=== PATIENT | male | born 1950 | race Caucasian/White ===

== ENCOUNTER 2020-11-20 15:24 | Inpatient (IN) | payer MEDICARE, OTHER, SELFPAY ==
[2020-11-20] VITALS (7 sets, daily range): BP systolic 99–119; BP diastolic 56–97; PULSE 72–90; RESP 15–19; TEMP 36.9–37.3; O2SAT 94–100; BMI 24.3; BMI 24.2
[2020-11-20] MEDS: Morphine 4 MG/ML Syringe IV (16:04)
[2020-11-20] MEDS: Ondansetron 4 MG/2 ML Vial IV (16:05)
[2020-11-20] MEDS: 0.9% Normal Saline 1,000 ML 999 ML IV (16:05)
[2020-11-20 16:29] LABS: International Normalized Ratio 1.2; Prothrombin Time (Protime)PT. 14.4 SECONDS (11.7-14.9)
[2020-11-20 16:30] LABS: Partial Thromboplast Time 50.6 Seconds (24.1-36.2)
[2020-11-20 16:31] LABS: Absolute Lymphocyte Count 0.38 X10^3/uL (0.83-4.51); Absolute Neutrophil Count 0.1 X10^3/uL (2.0-7.7); Basophil# 0.02 X10^3/uL; Basophil% 2.7 % (0-1); Eosinophil# 0.02 X10^3/uL; Eosinophils% 2.7 % (0-5); Hemoglobin 9.3 g/dL (13.0-16.5); Lymphocyte # 0.38 X10^3/ul (0.83-4.51); Lymphocyte % 51.4 % (19-41); Mean Corp Hgb Conc 32.1 g/dL (32-36); Mean Corpuscular Hgb 32.6 pg (27.0-32.0); Mean Corpuscular Volume 101.8 fL (80-94); Mean Platelet Vol. 11.6 fl (6.2-12.0); Monocyte# 0.23 X10^3/uL; Monocyte% 31.1 % (0-10); NRBC Flagged by Analyzer 0 % (0-5); Neutrophil # 0.09 X10^3/uL (2.7-7.7); Neutrophil % 12.1 % (47-70); POSITIVE COUNT YES; POSITIVE DIFFERENTIAL YES; POSITIVE MORPHOLOGY YES; Platelet Count 113 K/mm3 (150-450); RBC Distribution Width CV 17.2 % (11.6-14.6); RBC Distribution Width SD 64.7 fl (35.1-43.9); Red Blood Count 2.85 M/mm3 (4.6-6.2)
[2020-11-20 16:44] LABS: ALB/GLOB Ratio 0.7 RATIO (0.9-2.4); AST(SGOT) 23 U/L (15-37); Alanine Aminotransfer ALT/SGPT 18 U/L (16-61); Albumin, Serum 2.5 g/dL (3.2-5.0); Alkaline Phosphatase 58 U/L (45-117); Anion Gap 5 (5-15); BUN 14 mg/dL (7-18); BUN/Creat Ratio 21.8 RATIO (10-20); Calcium,Total 7.8 mg/dL (8.5-10.1); Chloride 106 mmol/L (98-107); Creatinine, Serum 0.64 mg/dL (0.70-1.30); EST Glomerular Filtration Rate 131 mL/min (>60); Est Glom Filt Rate - Afr Amer 159 mL/min (>60); Estimated Creatinine Clearance 69.72 ml/min; Globulin 3.8 g/dL (2.2-4.2); Glucose 95 mg/dL (74-106); Magnesium 2.1 mg/dL (1.6-2.6); Phosphorus 2.5 mg/dL (2.5-4.9); Potassium 3.7 mmol/L (3.5-5.1); Protein, Total 6.3 g/dL (6.4-8.2); Sodium Level 136 mmol/L (136-145)
[2020-11-20 17:01] LABS: Lactic Acid 0.9 mmol/L (0.4-1.9)
[2020-11-20 17:22] LABS: Differential Indicated SCAN CRITERIA MET; White Blood Count 0.7 K/mm3 (4.4-11.0)
[2020-11-20 17:23] LABS: Anisocytosis 1+; Hypochromasia 1+; Macrocytosis 1+; Platelet Estimate SLT DEC (ADEQ); Red Cell Morphology N CHROM NORMAL (NORM C&C)
[2020-11-20 17:26] LABS: Differential Comment SEE COMMENTS
[2020-11-20 17:40] LABS: Bacteria 0 SEEN /hpf (None Seen); Mucous, Urine 0 SEEN /hpf (<or=2+); Squamous Epithelial Cells - UA 0 SEEN /hpf (0-5)
--- NOTE | 2020-11-20 17:45 | RAD_ITS ---
STUDY: X-RAY CHEST REASON FOR EXAM: Male, 70 years old. Fever TECHNIQUE: Frontal portable view of the chest COMPARISON: None. FINDINGS: There are bilateral small pleural effusions and basal atelectasis. Lower lobes are mildly suboptimally seen due to soft tissue summation and cardiac shadow obscuration. Mid to upper lung zones are clear. There is sternotomy and coronary bypass. Infusion port is present in the right upper chest entering the subclavian and terminating with its tip in the lower SVC. RAD/Chest 1 View (Portable) IMPRESSION: 1. Presumed bilateral atelectasis and small effusions. Given possibility of pneumonia refer to confirmatory imaging. 2. Open heart surgery/bypass. Electronically Signed: Rowena Bernard MD at 18:24 EDT Tel , Service support ,
[2020-11-20 17:46] LABS: Color, Urine Yellow (Yellow); Glucose, Dipstick Normal (Normal); Ketone-Dipstick Negative (Negative); Leukocyte Esterase-Dipstick Negative /ul (Negative); Nitrite-Dipstick Negative (Negative); Occult Blood-Urine Negative /ul (Negative); Protein-Dipstick 30 mg/dl (Negative); Urine Bilirubin Dipstick Negative (Negative); Urine Clarity Clear (Clear); Urine Urobilinogen Normal (Normal); Urine pH 6.5 (5.0 - 8.0)
[2020-11-20 18:04] LABS: Red Blood Cells-Urine 0-5 SEEN /hpf (0-5); White Blood Cells 0-5 SEEN /hpf (0-5)
--- NOTE | 2020-11-20 18:24 | ED.VISSUMM ---
- ER Visit Summary Date of Service: 11/20/20 Chief Complaint: My tongue is sore History of Present Illness: The patient is a [address] Adamson. He has a history of esophageal cancer with metastases to his lungs. He had chemo 1 week ago. States that since that time his tongue has been swollen and sore. He has had very difficult time taking anything orally. He reports that he feels very fatigued. Patient reports that he saw Dr. Adamson in the office yesterday got IV fluids for dehydration. He had blood cultures obtained. He reports his white count was less than 1 yesterday. Patient reports that his highest temperature has been 99.7 degrees. He reports that he does not have a sore throat or cough. He had mild shortness of breath. He had 2 episodes of diarrhea today. He had nausea without vomiting. No abdominal pain. No dysuria or frequency. He has diffuse myalgias and a mild headache. Physical Examination: Vitals: 99.2, 119/76, 82, 16, 95% on room air which is not hypoxic. General: Well-nourished and well-developed. Head: Normocephalic atraumatic. HEENT: There is white plaque to the inferior lateral surface of his tongue bilaterally right greater than left. There are no other lesions in his mouth to suggest thrush. Neck: Supple, no lymphadenopathy. No JVD. Nontender. Cardiovascular: Regular rate and rhythm. No murmurs. Respiratory: No respiratory distress. Clear to auscultation bilaterally. Abdominal: Soft, nontender, nondistended, normal bowel sounds. No guarding, rebound, or peritoneal signs. Back: Nontender. Extremities: Nontender, no edema. Skin: Normal color, no rash. Neurologic: Alert and oriented ?3. Cranial nerves II through XII are intact. Normal strength and sensation. Psych: Normal affect. Test Results: CBC shows a white count of 0.7 with 12% segmented neutrophils giving an absolute neutrophil count of 84. H&H is 9.3 and 29.0. Platelets are 113. Chem-7 shows a creatinine of 0.64 and calcium of 7.8. LFTs show total protein is 6.3 and albumin 2.5. INR is 1.2. PTT is 50.6. UA is normal. Lactic acid is 0.9. Chest x-ray shows no acute disease. Emergency Department Course and Treatment: Patient was given morphine and Zofran IV. Is given a liter normal saline. After discussing with Dr. Adamson the patient was treated as a neutropenic fever and given cefepime IV. The patient refused a second blood culture reporting that he got blood cultures in the office yesterday. Treatment Plan: Patient was discussed with Dr. Ceron. He will be admitted to hospital for further evaluation and treatment. Disposition: Admitted in improved condition. Impression: 1. Neutropenic fever. 2. Stomatitis. 3. 1 week status post chemotherapy for esophageal cancer. This note was generated with [employer] software. It may contain incorrect words, spelling, and punctuation that were not noted in review of the chart prior to signing ED Disposition - Plan for ED Patient: Referrals: Fran Jarvis MD [Primary Care Provider] -
--- NOTE | 2020-11-20 19:00 | HP.PCM_ITS ---
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 Comment: Diagnosed in July 2018 (3) Oral mucositis (ulcerative) due to other drugs Status: Acute (4) Pancytopenia due to chemotherapy Status: Acute (5) HFrEF (heart failure with reduced ejection fraction) Status: Chronic Comment: EF 43% on recent echo per patient (6) PAF (paroxysmal atrial fibrillation) Status: Chronic (7) HTN (hypertension) Status: Chronic (8) Hyperlipemia Status: Chronic (9) COPD (chronic obstructive pulmonary disease) Status: Chronic (10) BPH (benign prostatic hyperplasia) Status: Chronic (11) GERD (gastroesophageal reflux disease) Status: Chronic (12) Neuropathy associated with cancer Status: Chronic (13) CAD (coronary artery disease) Status: Chronic (14) Chronic bilateral low back pain Status: Chronic History of Present Illness Date of Admission: 11/20/20 Mr. Briceño is a 70 year old WM with a past medical history of metastatic esophageal cancer, pancytopenia, PAF, CAD, HTN, HPL, COPD, chemotherapy-induced peripheral neuropathy, GERD, BPH, and insomnia presented to the emergency department at [facility] on 11/20/2020 with a chief complaint of having a sore tongue. Mr. Briceño has been being treated for esophageal cancer since 2018 initially with neoadjuvant chemotherapy. He then had surgery and was found to have metastatic disease at that time. He has been on his current chemotherapy regimen since May 2020. He reports that his metastatic nodules in his lungs have been improving. Upon presentation he reported he had chemo 1 week ago Sunday and since that time his tongue has been a bit swollen and sore and he had difficulty taking anything in orally. He was seen in Dr. Adamson's office yesterday and was given IV fluids for dehydration. He reports that he was neutropenic per discussion with Dr. Pearson yesterday and that he has had a temp of 99.7 at its highest at home. The ED physician discussed the case with Dr. Adamson and states that his normal temp is approximately [address] Adamson felt this was more consistent with neutropenic fever. The patient only reports fatigue, a sore mouth, mild chronic shortness of breath, 2 episodes of loose stool today, some nausea without vomiting but denies abdominal pain, dysuria or frequency, and cough. He states he had a chilling episode and by description sounds like he had some rigors associated with this. He is also complaining of myalgias worsening low back pain and a mild headache. His vital signs on admission show a temp of 99 2 at T-max in the emergency department, a blood pressure of 99/56, a respiratory rate of 19, and his oxygen saturations were 94 to 95% on room air. His labs showed a CBC with a white count of 0.7 and an absolute neutrophil count of 0.1, hemoglobin of 9.3, and a platelet count of 113. I am unable to compare baseline as these are the only labs he has had drawn at this institution. His BMP was relatively normal. A UA was performed and shows protein but no signs of infection. A chest x-ray showed bilateral lower lobe atelectasis/effusions. Blood cultures are pending only one was obtained as the patient refused a second blood culture stating he had blood cultures done in Dr. Adamson's office yesterday. In the emergency department he received cefepime, IV Zofran, IV morphine, and 1 L of normal saline. He will be admitted to the medical floor for continued antibiotics and will remain in neutropenic precautions. 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 (Chronic) Diagnosed in July 2018 HFrEF (heart failure with reduced ejection fraction) (Chronic) EF 43% on recent echo per patient PAF (paroxysmal atrial fibrillation) (Chronic) HTN (hypertension) (Chronic) Hyperlipemia (Chronic) COPD (chronic obstructive pulmonary disease) (Chronic) BPH (benign prostatic hyperplasia) (Chronic) GERD (gastroesophageal reflux disease) (Chronic) Neuropathy associated with cancer (Chronic) CAD (coronary artery disease) (Chronic) Chronic bilateral low back pain (Chronic) Allergies No Known Allergies Allergy (Verified 11/20/20 16:03) Home Medications: Ambulatory Orders Medication Instructions Recorded Apixaban [Eliquis] 5 mg PO BID 11/20/20 Atorvastatin Calcium 80 mg PO DAILY 11/20/20 Clopidogrel Bisulfate [Clopidogrel] 75 mg PO DAILY 11/20/20 Fenofibrate 160 mg PO DAILY 11/20/20 Fluticasone Propion/Salmeterol 1 puff INHALATION PRN PRN 11/20/20 [Wixela 100-50 Inhub] Gabapentin [Neurontin] 300 mg PO TIDCM 11/20/20 Metoprolol Tartrate 50 mg PO DAILY 11/20/20 Pantoprazole Sodium [Protonix] 40 mg PO DAILY 11/20/20 Tamsulosin HCl [Flomax] 0.4 mg PO DAILY 11/20/20 Zolpidem Tartrate [Ambien] 10 mg PO DAILY 11/20/20 Surgical History: - - For GL surgery Psychiatric History: No pertinent psych hx Lives: Spouse/ Significant Other Smoking Status: Never smoker Alcohol: None Drugs: None - *Family History Maternal History Items: No pertinent history Paternal History Items: No pertinent history Review of Systems Constitutional: Reports: Anorexia, Chills, Fever, Malaise, Weakness, Fatigue. Denies: Night Sweats, Weight Change Eyes: Denies: Blurred vision, Cataracts, Conjunctivae Inflammation, Double vision, Drainage, Eyelid Inflammation, Pain, Redness, Vision Change HEENT: Reports: - - Sore mouth. Denies: Difficulty Hearing, Difficulty Swallowi ng, Dysphasia, Ear Pain, Eye Pain, Hard of Hearing, Head Aches, Nasal bleeding, Nasal Congestion, Post Nasal Drip, Sinus Congestion, Sinus Drainage, Sore Throat, Visual Changes Cardiovascular: Denies: Chest Pain, Claudication, Chest Pressure, Chest Tightness, Edema, Heaviness, Light Headedness, Orthopnea, Palpitations, Paroxysmal Noc. Dyspnea, Syncope Respiratory: Reports: Shortness of Breath. Denies: Cough, Hemoptysis, Pleuritic Pain, Shortness of breath at rest, Shortness of breath upon exertion, Sputum production, Wheezing Gastrointestinal: Reports: Nausea, - - 2 episodes of loose stool today. Denies: Abdominal Pain, Constipation, Diarrhea, Dyspepsia, Hematemesis, Hematochezia, Melena, Vomiting Genitourinary: Reports: Hesitancy, Nocturia. Denies: Dysuria, Frequency, Hematuria, Incontinence, Retention, Urgency Musculoskeletal: Reports: Back Pain, Foot Pain - Secondary to neuropathy, Hand Pain - Secondary to neuropathy, Joint Pain - Bilateral knee pain. Denies: Joint stiffness, Joint swelling, Joint Tenderness, Leg Pain, Muscle pain, Neck Pain Skin: Denies: Dryness, Jaundice, Lesions, Pruritis, Rash, Skin Changes, Wounds Neurological: Denies: Balance problems, Blurred vision, Double vision, Change in Speech, Slurred speech, Confusion, Difficulty swallowing, Focal weakness, Headaches, Incoordination, Numbness, Tingling, Tremor, Seizures Psychiatric: Denies: Anxiety, Depression, Homicidal Ideations, Suicidal Ideations Endocrine: Denies: Change in Body Habitus, Heat/ Cold Intolerance, Polydipsia, Polyuria Hematologic/ Lymphatic: Reports: Anemia. Denies: Adenopathy, Easy Bruising, Easy Bleeding, Petechiae, Purpura VTE Information - Inpt Only VTE Present on Admission: No VTE Mechan Device Prophylaxis: None VTE Pharm Prophylaxis ordered?: No Reason prophylaxis not ordered:: Treatment Not Indicated - Patient is on Eliquis chronically - Physical Exam Vitals/I&O's: Vital Signs Temp Pulse Resp BP Pulse Ox 99.2 F H 78 19 H 99/56 L 94 11/20/20 18:29 11/20/20 18:29 11/20/20 18:29 11/20/20 18:29 11/20/20 18:29 Oxygen Delivery Method Room Air Weight: 74.843 kg Body Mass Index (BMI) 24.3 Intake and Output for Last 24 Hours 11/18/20 11/19/20 11/20/20 23:59 23:59 23:59 Intake Total 1000 / 1000 Balance 1000 / 1000 General: Alert, Oriented x3, Cooperative, No apparent distress, Well developed, Well nourished, - - Thin white male lying in bed, appears comfortable, nontoxic, at bedside HEENT: Atraumatic, PERRLA, EOMI, Normocephalic, EAC Clear Oral: Moist Mucosa, Ulcerations Present - Bilateral tongue on the base, - - Fair dentition, no thrush, Mallampati 2 Neck: Supple, No JVD, Negative Carotid Bruits, Negative Hepatojugular Reflux, No Nodes, Trachea Midline, Thyroid Normal Size and Texture Lungs: Clear to auscultation, Normal air movement, No rhonchi, No wheeze, No rales Cardiovascular: Regular rate, Regular Rhythm, Normal S1, Normal S2, Murmur - 2 out of 6 systolic murmur Abdomen: Bowel Sounds Present, Soft, Non Tender, Non-Distended, No Hepato-splenomegaly, No hernias noted Extremities: No clubbing, No cyanosis, No edema, Capillary Refill Less than 3 Seconds, Peripheral Pulses Normal Skin: No rashes, No breakdown, - - Lateral palms are hyperemic Musculoskeletal: No Tenderness to Palpation of Joints or Extremities, No Muscle Wasting, Arthritic Changes Lymphatic: No Cervical, Supraclavicular, or Inguinal Adenopathy Neurological: Cranial nerves II-XII grossly intact, Deep Tendon Reflexes 2+/4 and Symmetrical, Neuro grossly intact, Muscle tone normal, Coordination normal, - - I lateral upper and lower extremity distal neuropathy Psych/Mental Status: Normal Affect, Appropriate, - - A pleasant Laboratory Results 11/20/20 16:10: WBC 0.7 L*, RBC 2.85 L, Hgb 9.3 L, Hct 29.0 L, MCV 101.8 H, MCH 32.6 H, MCHC 32.1, RDW Std Deviation 64.7 H, RDW Coeff of Sina 17.2 H, Plt Count 113 L, MPV 11.6, Immature Gran % (Auto) 0.000, Neut % (Auto) 12.1 L, Lymph % (Auto) 51.4 H, [place] % (Auto) 31.1 H, Eos % (Auto) 2.7, Baso % (Auto) 2.7 H, Absolute Neuts (auto) 0.1 L, Absolute Lymphs (auto) 0.38 L, Nucleated RBC % 0, Differential Comment SEE COMMENTS, Diff Path Review May foll, Platelet Estimate SLT DEC, RBC Morphology N CHROM, Hypochromasia 1+, Anisocytosis 1+, Macrocytosis 1+ 11/20/20 16:10: PT 14.4, INR 1.2, APTT 50.6 H 11/20/20 16:10: Sodium 136, Potassium 3.7, Chloride 106, Carbon Dioxide 25.0, Anion Gap 5, BUN 14, Creatinine 0.64 L, Estim Creat Clear Calc 69.72, Est GFR (MDRD) Af Amer 159, Est GFR (MDRD) Non-Af 131, BUN/Creatinine Ratio 21.8 H, Glucose 95, Calcium 7.8 L, Phosphorus 2.5, Magnesium 2.1, Total Bilirubin 0.40, AST 23, ALT 18, Alkaline Phosphatase 58, Total Protein 6.3 L, Albumin 2.5 L, Globulin 3.8, Albumin/Globulin Ratio 0.7 L 11/20/20 16:10: Lactic Acid 0.9 11/20/20 17:34: Urine Color Yellow, Urine Clarity Clear, Urine pH 6.5, Ur Specific [place] 1.010, Urine Protein 30 H, Urine Glucose (UA) Normal, Urine Ketones Negative, Urine Occult Blood Negative, Urine Nitrite Negative, Urine Bilirubin Negative, Urine Urobilinogen Normal, Ur Leukocyte Esterase Negative, Urine RBC 0-5 SEEN, Urine WBC 0-5 SEEN, Ur Squamous Epith Cells 0 SEEN, Urine Bacteria 0 SEEN, Urine Mucus 0 SEEN Assessment/Plan All Active Problems Neutropenic fever (Acute) Oral mucositis (ulcerative) due to other drugs (Acute) Pancytopenia due to chemotherapy (Acute) Neutropenic fever -Last chemotherapy was approximately 1 week ago Sunday -Cefepime initiated in the emergency department -Continue with cefepime and initiate vancomycin upon admission -UA does not look infected, chest x-ray shows no obvious pneumonia -Blood cultures are pending--> 1 of 2 drawn here as patient had 2 blood cultures drawn in the outpatient setting 11/19/2020 (Dr. Adamson's office) -Check MRSA PCR and a.m. procalcitonin -We will likely need treatment until white count normalizes -Granix ordered at the recommendation of Dr. Adamson -Neutropenic precautions -Check daily CBC with differential Pancytopenia secondary to chemotherapy -Monitor counts -Granix today -Sitter redosing depending on counts tomorrow Oral mucositis secondary to chemotherapy -Bilateral ulcerations on the bottom of the tongue -No signs of thrush -Continue to monitor -Oral viscous lidocaine every 3 hours as needed Moderate malnutrition -Secondary to decreased p.o. intake from oral pain -Viscous lidocaine -Supplementation with Ensure -Lucas diet PAF -Continue metoprolol -Continue Eliquis Peripheral neuropathy secondary to chemotherapy -Continue gabapentin -Per discussion with and patient the dose had been increased to 600 [address] Adamson on 11/19/2020 HFrEF-compensated -No signs of acute heart failure currently -Per discussion with patient an echo was done recently and showed an EF of 43% -Patient had been on Herceptin but this was discontinued due to his drop in ejection fraction -Monitor for signs and symptoms of acute decompensated heart failure -Patient does have cardiac murmur on exam Hypertension/hyperlipidemia/CAD -Continue metoprolol 50 mg daily -Continue Plavix 75 mg daily -Continue atorvastatin 80 mg daily -Continue fenofibrate 160 mg daily -Monitor vitals -Lucas diet secondary to malnutrition risk GERD -Continue Protonix 40 mg daily Asthma -Continue inhalers -Consider as needed albuterol if patient become short of breath BPH -Continue Flomax Chronic low back pain -As needed oxycodone -As needed morphine if patient is unable to take oral medication secondary to oral pain -Bowel regimen Insomnia -Continue Ambien DVT prophylaxis -Continue Eliquis 5 mg twice daily [facility]
[2020-11-20] MEDS: 0.9% Normal Saline 1,000 ML 75 ML IV (19:55)
--- NOTE | 2020-11-20 19:58 | PHA.PHARE_ITS ---
Consult Pharmacy has been consulted to manage selected antiobiotic: Vancomycin Type of Consult: New start Labs: Sodium 136 mmol/L (136-145) 11/20/20 16:10 Potassium 3.7 mmol/L (3.5-5.1) 11/20/20 16:10 Chloride 106 mmol/L (98-107) 11/20/20 16:10 Carbon Dioxide 25.0 mmol/L (21.0-32.0) 11/20/20 16:10 Anion Gap 5 (5-15) 11/20/20 16:10 BUN 14 mg/dL (7-18) 11/20/20 16:10 Creatinine 0.64 mg/dL (0.70-1.30) L 11/20/20 16:10 Est GFR (MDRD) Af Amer 159 mL/min (>60) 11/20/20 16:10 Est GFR (MDRD) Non-Af 131 mL/min (>60) 11/20/20 16:10 BUN/Creatinine Ratio 21.8 RATIO (10-20) H 11/20/20 16:10 Glucose 95 mg/dL (74-106) 11/20/20 16:10 Weight used for dosin.8 kg Estimated Creatinine Clearance: 87.15 Goal Trough: 15-20 mcg/mL Pharmacy Plan for Drug Dosing: Pharmacy Service will continue to monitor and adjust dosing as required. Medications Vancomycin HCl 1,250 mg/ (Sodium Chloride) 275 mls @ 167 mls/hr IV X1 ONE Stop: 11/20/20 21:38 Last Admin: 11/20/20 19:55 Dose: 167 mls/hr Documented by: Vancomycin HCl 1,250 mg/ (Sodium Chloride) 275 mls @ 167 mls/hr IV Q12H [facility] Follow-Up Labs: Trough Vancomycin Labs to be done on [date and time ordered]: 11/22 @ 5816
--- NOTE | 2020-11-20 20:00 | NURSING ---
Attempted to call patient's regarding home meds. No answer- left voicemail to return call.
[2020-11-20] MEDS: NYSTATIN 500,000 UNIT/5 ML UDC 500000 UNIT PO (20:02)
[2020-11-20] MEDS: TBO-FILGRASTIM 480 MCG/0.8 ML ML SC (20:02)
[2020-11-20] MEDS: APIXABAN 5 MG TABLET PO (20:03)
[2020-11-20] MEDS: Atorvastatin Calcium 80 MG Tablet PO (20:03)
[2020-11-20] MEDS: Gabapentin 600 MG Tablet PO (20:03)
[2020-11-20] MEDS: Zolpidem Tartrate 5 MG Tablet PO (20:14)
[2020-11-20] MEDS: Albuterol 2.5 MG/3 ML VIAL.NEB. INHALATION (20:30)
[2020-11-20] MEDS: oxyCODONE 5 MG Tablet PO (23:00)
[2020-11-21 00:48] LABS: M R Staph aureus DNA By PCR Negative (Negative); Probe Check PASS; Specimen Processing Control PASS
[2020-11-21 02:35] VITALS: BP 125/73; PULSE 85; RESP 18; TEMP 36.8; O2SAT 98
[2020-11-21] MEDS: oxyCODONE 5 MG Tablet PO ×2 (03:06→22:22)
[2020-11-21 05:57] LABS: Absolute Lymphocyte Count 0.27 X10^3/uL (0.83-4.51); Absolute Neutrophil Count 0.1 X10^3/uL (2.0-7.7); Basophil# 0.01 X10^3/uL; Basophil% 1.5 % (0-1); Eosinophil# 0.02 X10^3/uL; Hemoglobin 8.7 g/dL (13.0-16.5); Lymphocyte # 0.27 X10^3/ul (0.83-4.51); Lymphocyte % 40.9 % (19-41); Mean Corp Hgb Conc 32.2 g/dL (32-36); Mean Corpuscular Hgb 33.3 pg (27.0-32.0); Mean Corpuscular Volume 103.4 fL (80-94); Mean Platelet Vol. 10.3 fl (6.2-12.0); Monocyte# 0.29 X10^3/uL; Monocyte% 43.9 % (0-10); NRBC Flagged by Analyzer 0 % (0-5); Neutrophil # 0.06 X10^3/uL (2.7-7.7); Neutrophil % 9.2 % (47-70); POSITIVE COUNT YES; POSITIVE DIFFERENTIAL YES; POSITIVE MORPHOLOGY YES; Platelet Count 95 K/mm3 (150-450); RBC Distribution Width CV 17.4 % (11.6-14.6); RBC Distribution Width SD 66.8 fl (35.1-43.9); Red Blood Count 2.61 M/mm3 (4.6-6.2)
[2020-11-21 06:01] LABS: Differential Indicated SCAN CRITERIA MET; White Blood Count 0.7 K/mm3 (4.4-11.0)
[2020-11-21 06:20] LABS: ALB/GLOB Ratio 0.6 RATIO (0.9-2.4); AST(SGOT) 21 U/L (15-37); Alanine Aminotransfer ALT/SGPT 15 U/L (16-61); Albumin, Serum 2.1 g/dL (3.2-5.0); Alkaline Phosphatase 51 U/L (45-117); Anion Gap 5 (5-15); BUN 8 mg/dL (7-18); BUN/Creat Ratio 15.2 RATIO (10-20); Calcium,Total 7.9 mg/dL (8.5-10.1); Chloride 107 mmol/L (98-107); Creatinine, Serum 0.53 mg/dL (0.70-1.30); EST Glomerular Filtration Rate 165 mL/min (>60); Est Glom Filt Rate - Afr Amer 200 mL/min (>60); Estimated Creatinine Clearance 69.72 ml/min; Globulin 3.5 g/dL (2.2-4.2); Glucose 84 mg/dL (74-106); Magnesium 2.1 mg/dL (1.6-2.6); Phosphorus 2.6 mg/dL (2.5-4.9); Potassium 3.7 mmol/L (3.5-5.1); Protein, Total 5.6 g/dL (6.4-8.2); Sodium Level 138 mmol/L (136-145)
[2020-11-21 06:57] VITALS: O2SAT 94
[2020-11-21 07:49] VITALS: BP 122/76; PULSE 91; RESP 16; TEMP 37.2; O2SAT 94
--- NOTE | 2020-11-21 07:51 | PN_ITS ---
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 He had chemotherapy with Ramucirumab/Taxotere 10 days ago presented with hypotension/dehydration secondary to inability to eat because of moderate - severe stomatitis. He was seen in my office on Sunday and we given him IV bolus fluid and started him on [place] solution. ANC was 0.7. 1 set of blood culture drawn at the office still negative after 48 hours. He presented yesterday with same complaint and a temperature of 99.9. Although he has no cough, shortness of breath, diarrhea, or urinary symptoms. He was seen in the emergency room and subsequently admitted for hydration and stomatitis. Interim history: He is feeling somewhat better. His mouth is still sore but able to drink fluid. No cough shortness of breath. His blood pressure is normal after IV hydration. He is afebrile. Laboratory Results 11/20/20 16:10: WBC 0.7 L*, RBC 2.85 L, Hgb 9.3 L, Hct 29.0 L, MCV 101.8 H, MCH 32.6 H, MCHC 32.1, RDW Std Deviation 64.7 H, RDW Coeff of Sina 17.2 H, Plt Count 113 L, MPV 11.6, Immature Gran % (Auto) 0.000, Neut % (Auto) 12.1 L, Lymph % (Auto) 51.4 H, [place] % (Auto) 31.1 H, Eos % (Auto) 2.7, Baso % (Auto) 2.7 H, Absolute Neuts (auto) 0.1 L, Absolute Lymphs (auto) 0.38 L, Nucleated RBC % 0, Differential Comment SEE COMMENTS, Diff Path Review May laurita, Platelet Estimate SLT DEC, RBC Morphology N CHROM, Hypochromasia 1+, Anisocytosis 1+, Macrocytosis 1+ 11/20/20 16:10: PT 14.4, INR 1.2, APTT 50.6 H 11/20/20 16:10: Sodium 136, Potassium 3.7, Chloride 106, Carbon Dioxide 25.0, Anion Gap 5, BUN 14, Creatinine 0.64 L, Estim Creat Clear Calc 69.72, Est GFR (MDRD) Af Amer 159, Est GFR (MDRD) Non-Af 131, BUN/Creatinine Ratio 21.8 H, Glucose 95, Calcium 7.8 L, Phosphorus 2.5, Magnesium 2.1, Total Bilirubin 0.40, AST 23, ALT 18, Alkaline Phosphatase 58, Total Protein 6.3 L, Albumin 2.5 L, Globulin 3.8, Albumin/Globulin Ratio 0.7 L 11/20/20 16:10: Lactic Acid 0.9 11/20/20 17:34: Urine Color Yellow, Urine Clarity Clear, Urine pH 6.5, Ur Specific [place] 1.010, Urine Protein 30 H, Urine Glucose (UA) Normal, Urine Ketones Negative, Urine Occult Blood Negative, Urine Nitrite Negative, Urine Bilirubin Negative, Urine Urobilinogen Normal, Ur Leukocyte Esterase Negative, Urine RBC 0-5 SEEN, Urine WBC 0-5 SEEN, Ur Squamous Epith Cells 0 SEEN, Urine Bacteria 0 SEEN, Urine Mucus 0 SEEN 11/20/20 23:03: MRSA (PCR) Negative 11/21/20 05:45: WBC 0.7 L*, RBC 2.61 L, Hgb 8.7 L, Hct 27.0 L, MCV 103.4 H, MCH 33.3 H, MCHC 32.2, RDW Std Deviation 66.8 H, RDW Coeff of Sina 17.4 H, Plt Count 95 L, MPV 10.3, Immature Gran % (Auto) 1.500 H, Neut % (Auto) 9.2 L, Lymph % (Auto) 40.9, [place] % (Auto) 43.9 H, Eos % (Auto) 3.0, Baso % (Auto) 1.5 H, Absolute Neuts (auto) 0.1 L, Absolute Lymphs (auto) 0.27 L, Nucleated RBC % 0, Diff Path Review November11/21/20 05:45: Sodium 138, Potassium 3.7, Chloride 107, Carbon Dioxide 26.0, Anion Gap 5, BUN 8, Creatinine 0.53 L, Estim Creat Clear Calc 69.72, Est GFR (MDRD) Af Amer 200, Est GFR (MDRD) Non-Af 165, BUN/Creatinine Ratio 15.2, Glucose 84, Calcium 7.9 L, Phosphorus 2.6, Magnesium 2.1, Total Bilirubin 0.50, AST 21, ALT 15 L, Alkaline Phosphatase 51, Total Protein 5.6 L, Albumin 2.1 L, Globulin 3.5, Albumin/Globulin Ratio 0.6 L ASSESSMENT/PLAN: 1) neutropenic fever -No source of infection except for stomatitis -Initial set of blood culture was negative -counts almas Plan: -Discontinue antibiotic if his second set of blood culture is negative today. -Continue Granix 480mcg sq today -Repeat CBC tomorrow and possible discharge home if stomatitis improves 2) stomatitis secondary to chemotherapy Plan: -Advance diet as tolerated -Continue Magic mouthwash or viscous lidocaine as needed. 3) dehydration/hypotension resolved with IV fluid. Plan: -Decrease IV fluid oral intake improves. Follow-up in my office in 2 weeks. He has a CT scan of chest schedule for next week cc: Dr. Lang Adamson, Dr. Ugo Delarosa
[2020-11-21] MEDS: TBO-FILGRASTIM 480 MCG/0.8 ML ML SC (09:34)
[2020-11-21] MEDS: APIXABAN 5 MG TABLET PO ×2 (09:35→22:21)
[2020-11-21 09:38] VITALS: PULSE 91
[2020-11-21] MEDS: Metoprolol Tartrate 50 MG Tablet PO (09:38)
[2020-11-21] MEDS: Tamsulosin HCl 0.4 MG Capsule PO (09:38)
[2020-11-21] MEDS: Clopidogrel Bisulfate 75 MG Tablet PO (09:39)
[2020-11-21] MEDS: Pantoprazole Sodium 40 MG Tablet PO (09:39)
[2020-11-21] MEDS: Fenofibrate 145 MG Tablet PO (09:39)
[2020-11-21] MEDS: Gabapentin 600 MG Tablet PO ×2 (11:34→16:53)
[2020-11-21] MEDS: 0.9% Normal Saline 1,000 ML 500 ML IV (11:35)
[2020-11-21 13:32] VITALS: BP 109/76; PULSE 86; RESP 16; TEMP 37.1; O2SAT 93
[2020-11-21] MEDS: 0.9% Normal Saline 1,000 ML 125 ML IV (13:40)
--- NOTE | 2020-11-21 16:47 | PN_ITS ---
Patient Problems: Active and Suspected Problems Neutropenic fever (Acute) Oral mucositis (ulcerative) due to other drugs (Acute) Pancytopenia due to chemotherapy (Acute) Subjective: Patient was seen and examined today, I talked with Dr. Adamson about his medical care today, I also talked with the patient's who was in the room at the time of my examination. At the time of this dictation, the patient's blood culture and urine culture is pending, the patient and his did not feel comfortable with going home today even if his blood culture resulted negative, he did not feel that he was in taking enough fluid to go home and I agree. I have increased the patient's IV fluid rate and he will be reevaluated tomorrow. Patient remains afebrile at this time. - Physical Exam Vitals/I&O's: Vital Signs Temp Pulse Resp BP Pulse Ox 98.8 F 86 16 109/76 93 11/21/20 13:32 11/21/20 13:32 11/21/20 13:32 11/21/20 13:32 11/21/20 13:32 Oxygen Delivery Method Room Air Weight: 74.5 kg Body Mass Index (BMI) 24.2 Intake and Output for Last 24 Hours 11/19/20 11/20/20 11/21/20 23:59 23:59 23:59 Intake Total 1426.25 / 1426.25 2267.92 / 2267.92 Balance 1426.25 / 1426.25 2267.92 / 2267.92 General: Alert, Oriented x3, Cooperative, No apparent distress, Well developed, Well nourished HEENT: Atraumatic, PERRLA, EOMI, Normocephalic Neck: Supple, No JVD, Trachea Midline, Thyroid Normal Size and Texture Lungs: Clear to auscultation, Normal air movement, No rhonchi, No wheeze, No rales Cardiovascular: Regular rate, Regular Rhythm, Normal S1, Normal S2, No murmurs, PMI Normal, No rub noted, No Gallop Abdomen: Bowel Sounds Present, Soft, Non Tender, Non-Distended Extremities: No clubbing, No cyanosis, No edema, Capillary Refill Less than 3 Seconds Skin: No rashes, No breakdown Musculoskeletal: No Tenderness to Palpation of Joints or Extremities Neurological: Cranial nerves II-XII grossly intact, Neuro grossly intact, Sensory exam intact to light touch and pain Psych/Mental Status: Normal Affect, Appropriate, Alert and oriented to time, place, person, mood and affect Laboratory Results 11/20/20 16:10: WBC 0.7 L*, RBC 2.85 L, Hgb 9.3 L, Hct 29.0 L, MCV 101.8 H, MCH 32.6 H, MCHC 32.1, RDW Std Deviation 64.7 H, RDW Coeff of Sina 17.2 H, Plt Count 113 L, MPV 11.6, Immature Gran % (Auto) 0.000, Neut % (Auto) 12.1 L, Lymph % (Auto) 51.4 H, [place] % (Auto) 31.1 H, Eos % (Auto) 2.7, Baso % (Auto) 2.7 H, Absolute Neuts (auto) 0.1 L, Absolute Lymphs (auto) 0.38 L, Nucleated RBC % 0, Differential Comment SEE COMMENTS, Diff Path Review May laurita, Platelet Estimate SLT DEC, RBC Morphology N CHROM, Hypochromasia 1+, Anisocytosis 1+, Macrocytosis 1+ 11/20/20 16:10: Lactic Acid 0.9 11/20/20 17:34: Urine Color Yellow, Urine Clarity Clear, Urine pH 6.5, Ur Specific [place] 1.010, Urine Protein 30 H, Urine Glucose (UA) Normal, Urine Ketones Negative, Urine Occult Blood Negative, Urine Nitrite Negative, Urine Bilirubin Negative, Urine Urobilinogen Normal, Ur Leukocyte Esterase Negative, Urine RBC 0-5 SEEN, Urine WBC 0-5 SEEN, Ur Squamous Epith Cells 0 SEEN, Urine Bacteria 0 SEEN, Urine Mucus 0 SEEN 11/20/20 23:03: MRSA (PCR) Negative 11/21/20 05:45: WBC 0.7 L*, RBC 2.61 L, Hgb 8.7 L, Hct 27.0 L, MCV 103.4 H, MCH 33.3 H, MCHC 32.2, RDW Std Deviation 66.8 H, RDW Coeff of Sina 17.4 H, Plt Count 95 L, MPV 10.3, Immature Gran % (Auto) 1.500 H, Neut % (Auto) 9.2 L, Lymph % (Auto) 40.9, [place] % (Auto) 43.9 H, Eos % (Auto) 3.0, Baso % (Auto) 1.5 H, Absolute Neuts (auto) 0.1 L, Absolute Lymphs (auto) 0.27 L, Nucleated RBC % 0, Diff Path Review November11/21/20 05:45: Sodium 138, Potassium 3.7, Chloride 107, Carbon Dioxide 26.0, Anion Gap 5, BUN 8, Creatinine 0.53 L, Estim Creat Clear Calc 69.72, Est GFR (MDRD) Af Amer 200, Est GFR (MDRD) Non-Af 165, BUN/Creatinine Ratio 15.2, Glucose 84, Calcium 7.9 L, Phosphorus 2.6, Magnesium 2.1, Total Bilirubin 0.50, AST 21, ALT 15 L, Alkaline Phosphatase 51, Total Protein 5.6 L, Albumin 2.1 L, Globulin 3.5, Albumin/Globulin Ratio 0.6 L Current Medications Acetaminophen (Acetaminophen 325 Mg Tablet) 650 mg PO Q6H PRN PRN PRN Reason: Pain Score 1-10/Temp > 100.7 F Albuterol Sulfate (Albuterol 2.5 Mg/3 Ml Vial.Neb.) 2.5 mg INHALATION Q6HWA.RT [facility] Last Admin: 11/20/20 20:30 Dose: 2.5 mg Documented by: Apixaban (Apixaban 5 Mg Tablet) 5 mg PO BID [facility] Last Admin: 11/21/20 09:35 Dose: 5 mg Documented by: Atorvastatin Calcium (Atorvastatin Calcium 80 Mg Tablet) 80 mg PO QHS [facility] Last Admin: 11/20/20 20:03 Dose: 80 mg Documented by: Budesonide (Budesonide Respules 0.5 Mg/2 Ml Ampul.Neb.) 0.5 mg INHALATION Q12H.RT [facility] Clopidogrel Bisulfate (Clopidogrel Bisulfate 75 Mg Tablet) 75 mg PO DAILY [facility] Last Admin: 11/21/20 09:39 Dose: 75 mg Documented by: Fenofibrate (Fenofibrate 145 Mg Tablet) 145 mg PO DAILY [facility] Last Admin: 11/21/20 09:39 Dose: 145 mg Documented by: Gabapentin (Gabapentin 600 Mg Tablet) 600 mg PO TIDCM [facility] Last Admin: 11/21/20 11:34 Dose: 600 mg Documented by: Sodium Chloride () 1,000 mls @ 125 mls/hr IV .Q8H [facility] Last Infusion: 11/21/20 14:10 Dose: 125 mls/hr Documented by: Cefepime HCl 2 gm/ Sodium (Chloride) 100 mls @ 200 mls/hr IV Q8 [facility] Last Infusion: 11/21/20 14:10 Dose: Infused Documented by: Vancomycin IV Pharmacy to Dose (1 each/ Sodium Chloride) 500 mls @ 250 mls/hr IV X1 PRN; Protocol PRN Reason: Rx to Dose Sodium Chloride () 250 mls @ 15 mls/hr IV .[id number] PRN PRN Reason: Saline Flush Sodium Chloride () 250 mls @ 15 mls/hr IV .[id number] PRN PRN Reason: Additional IVPB Infusion Vancomycin HCl 1,250 mg/ (Sodium Chloride) 275 mls @ 167 mls/hr IV Q12H [facility] Last Infusion: 11/21/20 09:50 Dose: Infused Documented by: Lidocaine HCl (Lidocaine 2% Viscous 15 Ml Udc) 5 ml PO Q3H PRN PRN Reason: oral pain Last Admin: 11/21/20 03:06 Dose: 5 ml Documented by: Metoprolol Tartrate (Metoprolol Tartrate 50 Mg Tablet) 50 mg PO DAILY [facility] Last Admin: 11/21/20 09:38 Dose: 50 mg Documented by: Morphine Sulfate (Morphine 2 Mg/Ml Syringe) 2 mg IV Q3H PRN PRN PRN Reason: Pain Score 6-10 Nutritional Formula (Lactose Free) (Ensure Enlive 120 Ml Liquid) 120 ml PO 4X/DAY [facility] Last Admin: 11/21/20 13:39 Dose: 120 ml Documented by: Ondansetron HCl (Ondansetron 4 Mg/2 Ml Vial) 4 mg IV Q8H PRN PRN PRN Reason: NAUSEA/VOMITING Oxycodone HCl (Oxycodone 5 Mg Tablet) 5 mg PO Q4H PRN PRN PRN Reason: Pain Score 4-5 Last Admin: 11/21/20 03:06 Dose: 5 mg Documented by: Pantoprazole Sodium (Pantoprazole Sodium 40 Mg Tablet) 40 mg PO DAILY [facility] Last Admin: 11/21/20 09:39 Dose: 40 mg Documented by: Senna/Docusate Sodium (Senna/Docusate Sodium 1 Tablet) 2 tablet PO BID PRN PRN PRN Reason: Constipation Sodium Chloride (0.9% Saline Lock 10 Ml Syringe) 10 - 40 ml IV UD PRN PRN Reason: SALINE FLUSH Tamsulosin HCl (Tamsulosin Hcl 0.4 Mg Capsule) 0.4 mg PO DAILY [facility] Last Admin: 11/21/20 09:38 Dose: 0.4 mg Documented by: Throat Lozenges (Benzocaine/Menthol 1 Lozenge) 1 lozenge MUCOUS MEM Q2H PRN PRN PRN Reason: SORE THROAT Zolpidem Tartrate (Zolpidem Tartrate 5 Mg Tablet) 5 mg PO QHS PRN PRN PRN Reason: SLEEP Last Admin: 11/20/20 20:14 Dose: 5 mg Documented by: Medical Necessity - Tobacco Use Smoking Status: Former smoker Tobacco Use: Cigarettes Assessment/Plan All Active Problems Neutropenic fever (Acute) Oral mucositis (ulcerative) due to other drugs (Acute) Pancytopenia due to chemotherapy (Acute) #1 neutropenic fever-we are currently awaiting blood culture results to come back from this admission, his outpatient blood culture results were negative according to oncology, continue current antibiotics at this time, recheck labs in the morning #2 severe stomatitis secondary to chemotherapy-continue supportive care, continue administration of IV fluids #3 metastatic esophageal cancer #4 severe neutropenia with anemia and thrombocytopenia-patient is getting Granix #5 essential hypertension Inpatient E&M: 9[address] [facility] Hosp L2
[2020-11-21 20:09] VITALS: BP 148/85; PULSE 79; RESP 16; TEMP 37.5; O2SAT 94
[2020-11-21] MEDS: Zolpidem Tartrate 5 MG Tablet PO (22:21)
[2020-11-21] MEDS: Atorvastatin Calcium 80 MG Tablet PO (22:21)
[2020-11-22] MEDS: 0.9% Normal Saline 1,000 ML 125 ML IV (00:48)
[2020-11-22 03:41] VITALS: BP 107/75; PULSE 77; RESP 17; TEMP 36.7; O2SAT 93
[2020-11-22 07:37] VITALS: O2SAT 93
[2020-11-22 07:57] LABS: Absolute Lymphocyte Count 0.39 X10^3/uL (0.83-4.51); Absolute Neutrophil Count 0.1 X10^3/uL (2.0-7.7); Basophil# 0.01 X10^3/uL; Basophil% 0.8 % (0-1); Eosinophil# 0.01 X10^3/uL; Eosinophils% 0.8 % (0-5); Hematocrit 30.6 % (40-54); Hemoglobin 9.7 g/dL (13.0-16.5); Lymphocyte # 0.39 X10^3/ul (0.83-4.51); Lymphocyte % 32.8 % (19-41); Mean Corp Hgb Conc 31.7 g/dL (32-36); Mean Corpuscular Hgb 32.6 pg (27.0-32.0); Mean Corpuscular Volume 102.7 fL (80-94); Mean Platelet Vol. 10.5 fl (6.2-12.0); Monocyte% 58.8 % (0-10); NRBC Flagged by Analyzer 0 % (0-5); Neutrophil # 0.08 X10^3/uL (2.7-7.7); Neutrophil % 6.8 % (47-70); POSITIVE COUNT YES; POSITIVE DIFFERENTIAL YES; POSITIVE MORPHOLOGY YES; Platelet Count 103 K/mm3 (150-450); RBC Distribution Width CV 17.1 % (11.6-14.6); RBC Distribution Width SD 64.6 fl (35.1-43.9); Red Blood Count 2.98 M/mm3 (4.6-6.2)
[2020-11-22 07:58] VITALS: PULSE 80
[2020-11-22] MEDS: Metoprolol Tartrate 50 MG Tablet PO (07:58)
[2020-11-22] MEDS: Clopidogrel Bisulfate 75 MG Tablet PO (07:58)
[2020-11-22] MEDS: Gabapentin 600 MG Tablet PO (07:58)
[2020-11-22 07:59] LABS: Differential Indicated SCAN CRITERIA MET; White Blood Count 1.2 K/mm3 (4.4-11.0)
[2020-11-22] MEDS: Tamsulosin HCl 0.4 MG Capsule PO (07:59)
[2020-11-22] MEDS: Fenofibrate 145 MG Tablet PO (07:59)
[2020-11-22] MEDS: Pantoprazole Sodium 40 MG Tablet PO (07:59)
[2020-11-22] MEDS: APIXABAN 5 MG TABLET PO (07:59)
[2020-11-22 08:19] VITALS: BP 142/72; PULSE 80; RESP 16; TEMP 36.6; O2SAT 94
[2020-11-22 09:14] LABS: Procalcitonin 0.11 ng/mL (0.00-0.09)
--- NOTE | 2020-11-22 09:41 | PCM.DC ---
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) Diagnosed in July 2018 Oral mucositis (ulcerative) due to other drugs (Acute) Pancytopenia due to chemotherapy (Acute) HFrEF (heart failure with reduced ejection fraction) (Chronic) EF 43% on recent echo per patient PAF (paroxysmal atrial fibrillation) (Chronic) HTN (hypertension) (Chronic) Hyperlipemia (Chronic) COPD (chronic obstructive pulmonary disease) (Chronic) BPH (benign prostatic hyperplasia) (Chronic) GERD (gastroesophageal reflux disease) (Chronic) Neuropathy associated with cancer (Chronic) CAD (coronary artery disease) (Chronic) Chronic bilateral low back pain (Chronic) You will use the following diet at home:: No restrictions Call your doctor if you observe: Fever of 101 or Higher, Shortness of breath Allergies/Adverse Reactions: Allergies No Known Allergies Allergy (Verified 11/20/20 16:03) Medications to take at Discharge Apixaban [Eliquis] 5 mg PO BID 11/20/20 Atorvastatin Calcium 80 mg PO DAILY 11/20/20 Clopidogrel Bisulfate [Clopidogrel] 75 mg PO DAILY 11/20/20 Fenofibrate 160 mg PO DAILY 11/20/20 Fluticasone Propion/Salmeterol [Wixela 100-50 Inhub] 1 puff INHALATION PRN PRN 11/20/20 Gabapentin [Neurontin] 300 mg PO TIDCM 11/20/20 Metoprolol Tartrate 50 mg PO DAILY 11/20/20 Pantoprazole Sodium [Protonix] 40 mg PO DAILY 11/20/20 Tamsulosin HCl [Flomax] 0.4 mg PO DAILY 11/20/20 Zolpidem Tartrate [Ambien] 10 mg PO QHS 11/20/20 Lidocaine 2% Viscous [Xylocaine Viscous] 5 ml PO Q3H PRN #100 ml 11/22/20 Saliva Substitute [Biotene] 15 ml MM 5X/DAY #1 bottle 11/22/20 The following prescriptions were given: Saliva Substitute [Biotene] 15 ml MM 5X/DAY #1 bottle Lidocaine 2% Viscous [Xylocaine Viscous] 5 ml PO Q3H PRN #100 ml PRN Reason: oral pain Transmission Status: Pending to [facility] Primary Care Physician: Fran Jarvis MD [Primary Care Provider] - Within 2 Weeks Test Results: Test results from this visit will be discussed in further detail at your follow-up appointment, if applicable. Please Follow Up With: Lang Adamson MD Proposed Discharge Date: 11/22/20
--- NOTE | 2020-11-22 09:43 | PCM.DC.SUM ---
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 in July 2018 HFrEF (heart failure with reduced ejection fraction) (Chronic) EF 43% on recent echo per patient PAF (paroxysmal atrial fibrillation) (Chronic) HTN (hypertension) (Chronic) Hyperlipemia (Chronic) COPD (chronic obstructive pulmonary disease) (Chronic) BPH (benign prostatic hyperplasia) (Chronic) GERD (gastroesophageal reflux disease) (Chronic) Neuropathy associated with cancer (Chronic) CAD (coronary artery disease) (Chronic) Chronic bilateral low back pain (Chronic) Hospital Course and Treatment Imaging Results: Clinical Impression(s) from Imaging Studies Chest X-Ray 11/20/20 17:45 IMPRESSION: 1. Presumed bilateral atelectasis and small effusions. Given possibility of pneumonia refer to confirmatory imaging. 2. Open heart surgery/bypass. Electronically Signed: Rowena Bernard MD at 18:24 EDT Tel , Service support , Lang Adamson oncology Operations: None Procedures: None Summary of Care Provided: The patient is a 70 year old M presents with sore tongue. Patient presented to his oncologist office and found to be dehydrated and received IV fluids. Patient had a low-grade temp of 99.7 Fahrenheit at home. And was felt to have neutropenic fever by oncology and advised admission. Patient did have stomatitis as well particularly under his tongue and patient did receive IV fluids as well as viscous lidocaine. Patient was put on cefepime and vancomycin for neutropenic fever. Patient did not have a fever during this hospitalization. Cultures came back negative and antibiotics will be discontinued upon discharge. For the patient's neutropenia, he did receive Granix 480 mcg. His white count has gone from 0.7-1.2. For the patient's stomatitis from his chemotherapy, patient has been using viscous lidocaine. He states that he cannot tolerate swish and swallow but does tolerate using a cotton applicator to apply to his dorsum of his tongue which seems to help. I did discuss with him that we do not have Rahul mouthwash but the options would be either Magic mouthwash or viscous lidocaine. He is decided upon viscous lidocaine where he can use a cotton applicator to apply directly to his tongue. Patient will be discharged home in stable condition. Patient did request Ambien prescription. Patient stated that he lost a bunch of pills down the sink and that would not be able to get those refilled until the . He said this happened about 2 weeks ago and contact his primary care provider and that the prescription is available at his pharmacy but cannot be picked up until December 01. I told him I would not be refilling a prescription because it was at reflect upon me that I was doubling up on his medications story that he had lost many of his medications. Told him once again to contact his primary care provider to get that refilled. Patient states that he does have Lunesta that he can take at home. I did inform him that I would not be prescribing him any oxycodone upon discharge. [] Patient Problems: Active and Suspected Problems Neutropenic fever (Acute) Oral mucositis (ulcerative) due to other drugs (Acute) Pancytopenia due to chemotherapy (Acute) - Physical Exam Vitals/I&O's: Vital Signs Temp Pulse Resp BP Pulse Ox 36.6 C 80 16 142/72 H 94 11/22/20 08:19 11/22/20 08:19 11/22/20 08:19 11/22/20 08:19 11/22/20 08:19 Oxygen Delivery Method Room Air Weight: 75.5 kg Body Mass Index (BMI) 24.2 Intake and Output for Last 24 Hours 11/20/20 11/21/20 11/22/20 23:59 23:59 23:59 Intake Total 1426.25 / 1426.25 3632.50 / 3632.50 1100 / 1100 Balance 1426.25 / 1426.25 3632.50 / 3632.50 1100 / 1100 General: Alert, No apparent distress HEENT: - - Sores on underside of his tongue bilaterally. Lungs: Clear to auscultation, Normal air movement, No rhonchi, No wheeze, No rales Cardiovascular: Regular rate, Regular Rhythm, Normal S1, Normal S2, No murmurs Abdomen: Bowel Sounds Present, Soft, Non Tender, Non-Distended, No Hepato-splenomegaly, - - prominent xyphoid process Laboratory Results 11/22/20 07:48: Procalcitonin 0.11 H 11/22/20 07:48: Vancomycin Trough 11.0 11/22/20 07:48: WBC 1.2 L*, RBC 2.98 L, Hgb 9.7 L, Hct 30.6 L, MCV 102.7 H, MCH 32.6 H, MCHC 31.7 L, RDW Std Deviation 64.6 H, RDW Coeff of Sina 17.1 H, Plt Count 103 L, MPV 10.5, Immature Gran % (Auto) 0.000, Neut % (Auto) 6.8 L, Lymph % (Auto) 32.8, [place] % (Auto) 58.8 H, Eos % (Auto) 0.8, Baso % (Auto) 0.8, Absolute Neuts (auto) 0.1 L, Absolute Lymphs (auto) 0.39 L, Nucleated RBC % 0, Differential Comment COMMENT, Diff Path Review May foll Current Medications Acetaminophen (Acetaminophen 325 Mg Tablet) 650 mg PO Q6H PRN PRN PRN Reason: Pain Score 1-10/Temp > 100.7 F Albuterol Sulfate (Albuterol 2.5 Mg/3 Ml Vial.Neb.) 2.5 mg INHALATION Q6HWA.RT [facility] Last Admin: 11/20/20 20:30 Dose: 2.5 mg Documented by: Apixaban (Apixaban 5 Mg Tablet) 5 mg PO BID [facility] Last Admin: 11/22/20 07:59 Dose: 5 mg Documented by: Atorvastatin Calcium (Atorvastatin Calcium 80 Mg Tablet) 80 mg PO QHS [facility] Last Admin: 11/21/20 22:21 Dose: 80 mg Documented by: Budesonide (Budesonide Respules 0.5 Mg/2 Ml Ampul.Neb.) 0.5 mg INHALATION Q12H.RT [facility] Clopidogrel Bisulfate (Clopidogrel Bisulfate 75 Mg Tablet) 75 mg PO DAILY [facility] Last Admin: 11/22/20 07:58 Dose: 75 mg Documented by: Fenofibrate (Fenofibrate 145 Mg Tablet) 145 mg PO DAILY [facility] Last Admin: 11/22/20 07:59 Dose: 145 mg Documented by: Gabapentin (Gabapentin 600 Mg Tablet) 600 mg PO TIDCM [facility] Last Admin: 11/22/20 07:58 Dose: 600 mg Documented by: Sodium Chloride () 1,000 mls @ 125 mls/hr IV .Q8H [facility] Last Infusion: 11/22/20 09:12 Dose: Infused Documented by: Cefepime HCl 2 gm/ Sodium (Chloride) 100 mls @ 200 mls/hr IV Q8 [facility] Last Infusion: 11/22/20 06:48 Dose: Infused Documented by: Sodium Chloride () 250 mls @ 15 mls/hr IV .[id number] PRN PRN Reason: Saline Flush Sodium Chloride () 250 mls @ 15 mls/hr IV .[id number] PRN PRN Reason: Additional IVPB Infusion Lidocaine HCl (Lidocaine 2% Viscous 15 Ml Udc) 5 ml PO Q3H PRN PRN Reason: oral pain Last Admin: 11/21/20 20:21 Dose: 5 ml Documented by: Metoprolol Tartrate (Metoprolol Tartrate 50 Mg Tablet) 50 mg PO DAILY [facility] Last Admin: 11/22/20 07:58 Dose: 50 mg Documented by: Nutritional Formula (Lactose Free) (Ensure Enlive 120 Ml Liquid) 120 ml PO 4X/DAY [facility] Last Admin: 11/22/20 08:03 Dose: 120 ml Documented by: Ondansetron HCl (Ondansetron 4 Mg/2 Ml Vial) 4 mg IV Q8H PRN PRN PRN Reason: NAUSEA/VOMITING Oxycodone HCl (Oxycodone 5 Mg Tablet) 5 mg PO Q4H PRN PRN PRN Reason: Pain Score 4-5 Last Admin: 11/21/20 22:22 Dose: 5 mg Documented by: Pantoprazole Sodium (Pantoprazole Sodium 40 Mg Tablet) 40 mg PO DAILY [facility] Last Admin: 11/22/20 07:59 Dose: 40 mg Documented by: Senna/Docusate Sodium (Senna/Docusate Sodium 1 Tablet) 2 tablet PO BID PRN PRN PRN Reason: Constipation Sodium Chloride (0.9% Saline Lock 10 Ml Syringe) 10 - 40 ml IV UD PRN PRN Reason: SALINE FLUSH Tamsulosin HCl (Tamsulosin Hcl 0.4 Mg Capsule) 0.4 mg PO DAILY [facility] Last Admin: 11/22/20 07:59 Dose: 0.4 mg Documented by: Throat Lozenges (Benzocaine/Menthol 1 Lozenge) 1 lozenge MUCOUS MEM Q2H PRN PRN PRN Reason: SORE THROAT Zolpidem Tartrate (Zolpidem Tartrate 5 Mg Tablet) 5 mg PO QHS PRN PRN PRN Reason: SLEEP Last Admin: 11/21/20 22:21 Dose: 5 mg Documented by: Discharge Diet: No Restrictions - no fresh fruits/vegetables., - Call your doctor if you observe: Fever of 101 or Higher, Shortness of breath Home Medications: Medications to take at Discharge Apixaban [Eliquis] 5 mg PO BID 11/20/20 Atorvastatin Calcium 80 mg PO DAILY 11/20/20 Clopidogrel Bisulfate [Clopidogrel] 75 mg PO DAILY 11/20/20 Fenofibrate 160 mg PO DAILY 11/20/20 Fluticasone Propion/Salmeterol [Wixela 100-50 Inhub] 1 puff INHALATION PRN PRN 11/20/20 Gabapentin [Neurontin] 300 mg PO TIDCM 11/20/20 Metoprolol Tartrate 50 mg PO DAILY 11/20/20 Pantoprazole Sodium [Protonix] 40 mg PO DAILY 11/20/20 Tamsulosin HCl [Flomax] 0.4 mg PO DAILY 11/20/20 Zolpidem Tartrate [Ambien] 10 mg PO QHS 11/20/20 Lidocaine 2% Viscous [Xylocaine Viscous] 5 ml PO Q3H PRN #100 ml 11/22/20 Saliva Substitute [Biotene] 15 ml MM 5X/DAY #1 bottle 11/22/20 Following Prescriptions Were Given to Patient: Saliva Substitute [Biotene] 15 ml MM 5X/DAY #1 bottle Lidocaine 2% Viscous [Xylocaine Viscous] 5 ml PO Q3H PRN #100 ml PRN Reason: oral pain Transmission Status: Pending to [facility] Primary Care Physician: Fran Jarvis MD [Primary Care Provider] - Within 2 Weeks Please Follow Up With: Lang Adamson MD Disposition: Home Minutes spent on discharge:: 40 Patient Condition:: Fair Medical Necessity - Tobacco Use Smoking Status: Former smoker Tobacco Use: Cigarettes Meaningful Use Info Meaningful Use Diagnoses (Choose all that apply): None applicable Inpatient E&M: 42678 Disch Hosp
--- NOTE | 2020-11-22 10:05 | CASEMGMT ---
RN CM Face to Face with patient for initial transition planning/care coordination assessment. RN CM introduced self and role at [facility]. Patient lying in bed, alert and oriented. Patient willing to participate in assessment and is able to answer all questions appropriately. Care providers, pharmacy, and demographics verified. Patient wishes to discharge home, denies need for home health at this time. Patient states he has no further needs or concerns at this time. CM to follow for discharge planning needs that may arise. PCP: Simona Specialists: arsh Jasso Preferred Pharmacy: [facility] [place] Insurance: [facility], [employer] Prescription Benefit: yes Living Will/HPOA: yes, Jennifer Briceño LNOK: Living Arrangements: Patient lives with in a single story home with no steps to enter the home. Patient states he was independent at home. Transportation: self/ DME/HHC: Patient states he has raised toilet and grab bars. Patient has previously had [facility] in the past. Disposition Plan: Patient to discharge home with family support and follow-up plans in place. Angelique LEWIS, RN, CM
[2020-11-22] MEDS: 0.9% Saline Lock 10 ML Syringe IV (10:27)
--- NOTE | 2020-11-22 11:16 | PHA.DC.MR ---
Pharmacy Service has performed discharge medication reconciliation for this patient. The patient's discharge medication list was reviewed for discrepancies and discrepancies were resolved. Home Medications Apixaban [Eliquis] 5 mg PO BID 11/20/20 Atorvastatin Calcium 80 mg PO DAILY 11/20/20 Clopidogrel Bisulfate [Clopidogrel] 75 mg PO DAILY 11/20/20 Fenofibrate 160 mg PO DAILY 11/20/20 Fluticasone Propion/Salmeterol [Wixela 100-50 Inhub] 1 puff INHALATION PRN PRN 11/20/20 Gabapentin [Neurontin] 300 mg PO TIDCM 11/20/20 Metoprolol Tartrate 50 mg PO DAILY 11/20/20 Pantoprazole Sodium [Protonix] 40 mg PO DAILY 11/20/20 Tamsulosin HCl [Flomax] 0.4 mg PO DAILY 11/20/20 Zolpidem Tartrate [Ambien] 10 mg PO QHS 11/20/20 Lidocaine 2% Viscous [Xylocaine Viscous] 5 ml PO Q3H PRN #100 ml 11/22/20 Saliva Substitute [Biotene] 15 ml MM 5X/DAY #1 bottle 11/22/20
[2020-11-22 11:36] LABS: Pathologist Review Reviewed
[2020-11-22 11:36] LABS: Pathologist Review Reviewed
[2020-11-22 11:37] LABS: Pathologist Review Reviewed
== END 2020-11-22 11:05 | disposition home or self-care (01) | DRG 809 ==
LOC: ED 18:32 → MS3 18:39
PROVIDERS: Internal Medicine; Admitting Provider Internal Medicine; Emergency Provider Emergency Medicine; PCP Family Medicine
DX: D70.9 Neutropenia, unspecified (principal); I50.22 Chronic systolic (congestive) heart failure; C78.89 Secondary malignant neoplasm of other digestive organs; C78.02 Secondary malignant neoplasm of left lung; C78.01 Secondary malignant neoplasm of right lung; E44.0 Moderate protein-calorie malnutrition; C80.1 Malignant (primary) neoplasm, unspecified; R50.81 Fever presenting with conditions classified elsewhere; K12.31 Oral mucositis (ulcerative) due to antineoplastic therapy; K12.1 Other forms of stomatitis; T45.1X5A Adverse effect of antineoplastic and immunosuppressive drugs, initial encounter; D61.810 Antineoplastic chemotherapy induced pancytopenia; I11.0 Hypertensive heart disease with heart failure; I48.0 Paroxysmal atrial fibrillation; E78.5 Hyperlipidemia, unspecified; J44.9 Chronic obstructive pulmonary disease, unspecified; N40.0 Benign prostatic hyperplasia without lower urinary tract symptoms; K21.9 Gastro-esophageal reflux disease without esophagitis; I25.10 Atherosclerotic heart disease of native coronary artery without angina pectoris; M54.5 Low back pain; G89.29 Other chronic pain; G62.0 Drug-induced polyneuropathy; E86.0 Dehydration; G47.00 Insomnia, unspecified; Z79.01 Long term (current) use of anticoagulants; Z79.02 Long term (current) use of antithrombotics/antiplatelets; Z79.899 Other long term (current) drug therapy; Z87.891 Personal history of nicotine dependence
CPT/HCPCS: 36415; 36591; 71045; 80053; 80202; 81001; 83605; 83735; 84100; 84145; 85025; 85610; 85730; 87040; 87086; 87641; 94640; 97802; 99251; 99285; J7030; J7050; A4216; G0463; J1447; J2405

== ENCOUNTER 2021-03-31 10:38 | Emergency (ER) | payer MEDICARE, OTHER, SELFPAY ==
[2021-03-31 10:39] VITALS: BP 95/74; PULSE 89; RESP 18; TEMP 36.6; O2SAT 97; BMI 19.3
--- NOTE | 2021-03-31 10:54 | CT_ITS ---
We are attempting to reach an attending provider to discuss findings. An addendum with communication details will be sent when the communication is complete. EXAM: CT HEAD WITHOUT INTRAVENOUS CONTRAST : 1950 CLINICAL INDICATION: Neuro deficit, acute, stroke suspected TECHNIQUE: Multiple axial images were obtained of the head without intravenous contrast. This CT exam was performed using one or more of the following dose reduction techniques: automated exposure control, adjustment of the mA and/or kV according to patient size, and/or use of iterative reconstruction technique. This report was created using [employer] Pack report Solicore technology. COMPARISON: None. FINDINGS: BRAIN AND EXTRA-AXIAL SPACES: There is an ill-defined isodense mass seen in the right parietal occipital region that measures roughly 3.8 x 3.8 x 4.1 cm. There is effacement of the right occipital horn with surrounding edema and a slight right to left subfalcine shift in the midline of 4 mm. The mass is a central area of hypodensity that measures roughly 1.6 x 0.1 0.3 cm. No intra- or extra-axial hemorrhage. No evidence of acute infarct. There is preservation of the cueto/white matter interface. Posterior fossa structures are unremarkable. Ventricles are appropriate for age. No hydrocephalus. Basal cisterns are patent. BONES/JOINTS: Unremarkable. No discrete lytic or blastic abnormalities. SINUSES: Unremarkable as visualized. Clear. MASTOID AIR CELLS: Unremarkable. Clear. ORBITS: Visualized globes, extraocular muscles, optic nerves and retrobulbar fat appear unremarkable. OTHER FINDINGS: There is no hemorrhage. CT/STROKE Brain/Head without Cont IMPRESSION: 1. Ill-defined mass in the right parietal occipital region with central area of hypodensity compatible with either metastatic disease or primary malignancy. There is surrounding vasogenic edema. There is effacement of the right occipital horn with mild right to left subfalcine shift. There is no hemorrhage identified. Further evaluation with MRI is recommended. Individualized dose optimization techniques were used for this CT. at 1208 Reported and signed by: Rolando Pham MD Electronically Signed: Rolando Pham MD at 12:07 EDT Tel , Service support ,
--- NOTE | 2021-03-31 10:54 | EKG12_ITS ---
Test Reason : NEURO S/SX Blood Pressure : / mmHG Vent. Rate : 077 BPM Atrial Rate : 077 BPM P-R Int : 176 ms QRS Dur : 162 ms QT Int : 450 ms P-R-T Axes : 059 099 -49 degrees QTc Int : 509 ms Normal sinus rhythm Right bundle branch block Inferior infarct , age undetermined Abnormal ECG Confirmed by EMILIA BHARDWAJ, DARCI ([id number]), technical editor POPPY FARAH ([id number]) on 04/05/2021 8:19:04 AM Referred By: URBANO Confirmed By:CHARLENE NIETO MD
--- NOTE | 2021-03-31 10:54 | RAD_ITS ---
EXAM: XR CHEST, 1 VIEW : 1950 CLINICAL INDICATION: Neuro deficit, acute, stroke suspected TECHNIQUE: Frontal view of the chest. This report was created using J[employer]see report generation technology. COMPARISON: 11/20/2020 FINDINGS: LUNGS AND PLEURAL SPACES: There is blunting the right costophrenic angle which may represent pleural effusion. There is by basilar airspace disease. There are apparent nodular opacities at the lung bases. No pneumothorax. HEART: Unremarkable. Cardiac silhouette not enlarged. MEDIASTINUM: Central airways and mediastinal contour are unremarkable. BONES/JOINTS: Unremarkable. SOFT TISSUES: Unremarkable. TUBES, LINES AND DEVICES: Right-sided Port-A-Cath is in stable position. RAD/Chest 1 View IMPRESSION: Right-sided effusion with minimal bibasilar airspace disease. There are apparent nodular opacities at the lung bases. If indicated further evaluation with CT scan of the chest may be beneficial. at 1212 Reported and signed by: Rolando Pham MD Electronically Signed: Rolando Pham MD at 12:11 EDT Tel , Service support ,
--- NOTE | 2021-03-31 10:56 | EX.ED.DYSGE1 ---
HPI History of Present Illness Chief Complaint: Numb/Ting Informant: patient and other (Dr. Adamson) Narrative Narrative: Patient sent in from oncology office speaking with Dr. Adamson prior to patient arrival. New onset ataxia weakness worsened over the past 3 days. Patient history of metastatic esophageal cancer finished chemotherapy 2 months ago per spouse. There is plans for oral chemo agent daily. Has not been started. Initial diagnosis 2 years ago metastasis noted last May into the lung. There is no known brain metastasis. Patient denies headache or visual changes. Baseline ambulation with a walker. Does have back pain with radiculopathy had Lyrica added to his gabapentin 5 days ago. Increasing weakness since then, however over the last 3 days unable to walk without assistance. Lyrica has been held for 2 days. Patient denies any urinary symptoms. Denies cough. History of CABG 4 vessels along with paroxysmal atrial fibrillation. Patient on Eliquis along with Plavix. Prior similar symptoms: No PFSH PFS Medical History (Updated 03/31/21 @ 18:[address] Pablo Lai, DO) Lower back pain Lumbar radiculopathy Malignant neoplasm of lower third of esophagus Home Medications apixaban 5 mg PO BID 11/20/20 [History Last Taken 03/31/21] atorvastatin 80 mg PO DAILY 11/20/20 [History Last Taken 03/30/21] clopidogrel 75 mg PO DAILY 11/20/20 [History Last Taken 03/30/21] fenofibrate 160 mg PO DAILY 11/20/20 [History Last Taken 03/31/21] gabapentin 300 mg PO BID 11/20/20 [History Last Taken 03/31/21] pantoprazole 80 mg PO QHS 11/20/20 [History Last Taken 03/30/21] tamsulosin 0.4 mg PO DAILY 11/20/20 [History Last Taken 03/31/21] docusate sodium 200 mg PO QHS 03/31/21 [History Last Taken 03/30/21] fluticasone propion-salmeterol [Wixela Inhub] 1 inh INHALATION BID 03/31/21 [History Last Taken 03/31/21] fluticasone propionate [Flonase Allergy Relief] 2 spray INTRANASAL DAILY 03/31/21 [History Last Taken Unknown] metoprolol succinate 25 mg PO DAILY 03/31/21 [History Last Taken 03/31/21] oxycodone 5 mg PO Q6H PRN 03/31/21 [History Last Taken 03/30/21] sennosides-docusate sodium [Senexon-S] 2 tab PO DAILY 03/31/21 [History Last Taken 03/30/21] zolpidem 10 mg PO QHS 03/31/21 [History Last Taken 03/30/21] Allergy/AdvReac Type Severity Reaction Status Date / Time rivaroxaban Allergy Anaphylaxis Verified 03/31/21 10:44 tizanidine Allergy Other Verified 03/31/21 10:44 tramadol Allergy Other Verified 03/31/21 10:44 codeine AdvReac Nausea Verified 03/31/21 10:44 Surgical History (Updated 03/31/21 @ 12:01 by Alli Maciel) H/O hernia repair History of knee replacement History of laparoscopic partial gastrectomy History of shoulder surgery Hx of CABG Social History Smoking Status: Former smoker ROS ROS ED Constitutional Constitutional ED: Denies chills, fever(s) or sweats Eyes Eyes: Denies change in vision ENT ENT ED: Denies dysphagia or sore throat Cardiovascular Cardiovascular: Denies chest pain, leg edema, palpitations or racing heartbeat Respiratory/Chest Respiratory/Chest: Denies cough, dyspnea or dyspnea on exertion Gastrointestinal Gastrointestinal: Denies abdominal pain, diarrhea, nausea or vomiting Genitourinary Genitourinary ED: Denies dysuria, hematuria or urinary frequency Musculoskeletal Musculoskeletal: Denies back pain, extremity pain or neck pain Integumentary Denies rash or wounds Neurologic Neurologic: Reports weakness; Denies headache(s) or paresthesias EXAM Physical Exam Const Vital Signs: 03/31/21 10:39 03/31/21 11:51 03/31/21 12:00 Temperature 98 F Temperature Source Temporal Pulse Rate 89 70 Respiratory Rate 18 18 Blood Pressure 95/74 104/63 107/82 H Blood Pressure Mean 81 76 90 Pulse Ox 97 95 Oxygen Delivery Method Room Air Room Air Room Air Positive cachectic General Appearance ED: cachectic and NAD Nutritional Appearance: cachectic HEENT Reports moist mucous membranes normocephalic and atraumatic Eyes PERRL, EOMs intact bilaterally and conjunctivae normal General Eye ED: Yes normal appearance of both eyes Neck no lymphadenopathy and supple General: Negative for tenderness Chest Wall Chest: Negative for tenderness Resp normal respiratory effort and normal air movement Effort and Inspection: symmetric chest movement; Negative for respiratory distress Cardio regular rate, regular rhythm and no murmurs Peripheral Pulses: pulses 2+ throughout GI normal to inspection, nondistended, normoactive bowel sounds and non-tender Palpation: Negative for guarding or rebound tenderness present Back/Spine no CVA tenderness and no thoracic nor lumbar tenderness Extremity normal to inspection General Extremety ED: Negative for edema or tenderness General Extremity: Negative for edema Neuro oriented x3 Neuro Narrative: NIH of 2 for slight left leg drift and paresthesias left lower leg compared to the right side. Sensorium / Orientation: awake and alert Motor Exam: general weakness Skin no rashes or lesions noted and no wounds MDM MDM MDM Narrative Medical decision making narrative: Patient nontoxic, NIH of 2 however symptoms more than 3 days along with being on Eliquis last dose this morning he would not be a candidate for TPA. Stroke work-up initiated urine added due to weakness concerns. Labs are stable. Chest x-ray notes right pleural effusion. He is not in any respiratory distress. His CT scan obtained and discussed with radiology concerning for right parietal occipital ill-defined mass with small midline shift of 4 mm. I spoke with his oncologist Dr. Adamson at 1220. Discussed obtaining MRI for the emergency department with and without contrast to determine if he needs to be transferred versus being able to be treated here. States if single mass that is large will need transfer to the neurosurgery center for gamma knife versus metastatic small lesions which can be treated at this facility. I discussed this with patient and significant other. MRI studies will be obtained. He has had this in the past. Results of MRI notes concerning mass of 6 x 4.5 x 6 cm right parietal occipital region. They reported possibly abscess however less likely. His white count is normal. He has no fevers. Discussed findings with patient and family. They report they would like to stay close to the area did not want to go into [place]. They requested [facility]. I spoke with [facility] transfer line and multiple physicians there. I spoke with the hospitalist Dr. Fraser who will admit the patient under his service. Patient family updated. Lab Data Attestation: I reviewed the patient's lab results. Labs: Laboratory Results - last 24 hr 03/31/21 03/31/21 03/31/21 11:00 11:00 11:00 WBC 4.5 RBC 4.56 L Hgb 14.2 Hct 42.7 MCV 93.6 MCH 31.1 MCHC 33.3 RDW Std Deviation 55.7 H RDW Coeff of Sina 16.1 H Plt Count 229 MPV 9.4 Immature Gran % (Auto) 0.200 Neut % (Auto) 51.6 Lymph % (Auto) 17.7 L Hamb[place] % (Auto) 15.2 H Eos % (Auto) 14.6 H Baso % (Auto) 0.7 Absolute Neuts (auto) 2.3 Absolute Lymphs (auto) 0.79 L Nucleated RBC % 0 PT 15.6 H INR 1.3 APTT 45.0 H Sodium 139 Potassium 3.9 Chloride 106 Carbon Dioxide 26.0 Anion Gap 7 BUN 10 Creatinine 0.68 L Estim Creat Clear Calc 60.38 Est GFR (MDRD) Af Amer 149 Est GFR (MDRD) Non-Af 123 BUN/Creatinine Ratio 14.7 Glucose 90 Calcium 9.4 Troponin I High Sens 14 POC Glucose 03/31/21 11:46 WBC RBC Hgb Hct MCV MCH MCHC RDW Std Deviation RDW Coeff of Sina Plt Count MPV Immature Gran % (Auto) Neut % (Auto) Lymph % (Auto) [place] % (Auto) Eos % (Auto) Baso % (Auto) Absolute Neuts (auto) Absolute Lymphs (auto) Nucleated RBC % PT INR APTT Sodium Potassium Chloride Carbon Dioxide Anion Gap BUN Creatinine Estim Creat Clear Calc Est GFR (MDRD) Af Amer Est GFR (MDRD) Non-Af BUN/Creatinine Ratio Glucose Calcium Troponin I High Sens POC Glucose 78 Radiography Chest X-Ray - ED: 1 View, Read by ED Physician and Read by Radiologist Diagnostic Testing: Radiology Impression Brain CT 03/31/21 10:54 IMPRESSION: 1. Ill-defined mass in the right parietal occipital region with central area of hypodensity compatible with either metastatic disease or primary malignancy. There is surrounding vasogenic edema. There is effacement of the right occipital horn with mild right to left subfalcine shift. There is no hemorrhage identified. Further evaluation with MRI is recommended. Individualized dose optimization techniques were used for this CT. at 1208 Reported and signed by: Rolando Pham MD Electronically Signed: Rolando Pham MD at 12:07 EDT Tel , Service support , ADDENDUM: 03/31/21 1217 IMPRESSION: 1. Ill-defined mass in the right parietal occipital region with central area of hypodensity compatible with either metastatic disease or primary malignancy. There is surrounding vasogenic edema. There is effacement of the right occipital horn with mild right to left subfalcine shift. There is no hemorrhage identified. Further evaluation with MRI is recommended. Individualized dose optimization techniques were used for this CT. at 1208 Reported and signed by: Rolando Pham MD N.B. : The above Results were Read Back by Rolando Pham MD to Pablo Ceron MD, and understanding confirmed on 03/31/2021 12:10:02 (ET). Electronically Signed: Rolando Pham MD at 12:07 EDT Tel , Service support , Chest X-Ray 03/31/21 10:54 IMPRESSION: Right-sided effusion with minimal bibasilar airspace disease. There are apparent nodular opacities at the lung bases. If indicated further evaluation with CT scan of the chest may be beneficial. at 1212 Reported and signed by: Rolando Pham MD Electronically Signed: Rolando Pham MD at 12:11 EDT Tel , Service support , Brain MRI 03/31/21 12:21 IMPRESSION: Large mass in the right parietal-occipital region of indeterminate etiology. . Possibility of large abscess may be considered however there is apparent involvement of the corpus callosum which raises question of glioblastoma. Clinical correlation recommended Electronically Signed: Wil Saucedo MD at 16:33 EDT , Service support , EKG Initial EKG: Attestation: I personally reviewed and interpreted this EKG as follows: Comments: Sinus rhythm rate of [address] changes T wave inversion in inferior leads with a right bundle branch block. Right bundle block similar to 2002. 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, Brain mass, Ataxia Prescriptions: No Action atorvastatin 80 MG tablet 80 mg PO DAILY RF: 0 clopidogrel 75 MG tablet 75 mg PO DAILY RF: 0 tamsulosin 0.4 MG capsule 0.4 mg PO DAILY RF: 0 pantoprazole 40 MG tablet 80 mg PO QHS RF: 0 gabapentin 300 MG capsule 300 mg PO BID RF: 0 fenofibrate 160 MG tablet 160 mg PO DAILY RF: 0 apixaban 5 MG tablet 5 mg PO BID RF: 0 fluticasone propion-salmeterol [Wixela Inhub] 250-50 mcg/dose Blister With Device 1 inh INHALATION BID RF: 0 fluticasone propionate [Flonase Allergy Relief] 50 mcg/actuation [place],Suspension 2 spray INTRANASAL DAILY RF: 0 oxycodone 5 mg tablet 5 mg PO Q6H PRN (Reason: Pain) RF: 0 sennosides-docusate sodium [Senexon-S] 8.6-50 mg tablet 2 tab PO DAILY RF: 0 docusate sodium 100 mg Capsule 200 mg PO QHS RF: 0 metoprolol succinate 25 mg tablet extended release 24 hr 25 mg PO DAILY RF: 0 zolpidem 10 mg tablet 10 mg PO QHS RF: 0 Primary Care Provider: Fran Jarvis Referrals: Fran Jarvis MD [Primary Care Provider] - Disposition Disposition: Transfer to Another Type [facility]
[2021-03-31 11:11] LABS: Absolute Lymphocyte Count 0.79 X10^3/uL (0.83-4.51); Absolute Neutrophil Count 2.3 X10^3/uL (2.0-7.7); Basophil# 0.03 X10^3/uL; Basophil% 0.7 % (0-1); Eosinophil# 0.65 X10^3/uL; Eosinophils% 14.6 % (0-5); Hematocrit 42.7 % (40-54); Hemoglobin 14.2 g/dL (13.0-16.5); Lymphocyte # 0.79 X10^3/ul (0.83-4.51); Lymphocyte % 17.7 % (19-41); Mean Corp Hgb Conc 33.3 g/dL (32-36); Mean Corpuscular Hgb 31.1 pg (27.0-32.0); Mean Corpuscular Volume 93.6 fL (80-94); Mean Platelet Vol. 9.4 fl (6.2-12.0); Monocyte# 0.68 X10^3/uL; Monocyte% 15.2 % (0-10); NRBC Flagged by Analyzer 0 % (0-5); Neutrophil % 51.6 % (47-70); Platelet Count 229 K/mm3 (150-450); RBC Distribution Width CV 16.1 % (11.6-14.6); RBC Distribution Width SD 55.7 fl (35.1-43.9); Red Blood Count 4.56 M/mm3 (4.6-6.2); White Blood Count 4.5 K/mm3 (4.4-11.0)
[2021-03-31 11:27] LABS: International Normalized Ratio 1.3; Prothrombin Time (Protime)PT. 15.6 SECONDS (11.7-14.9)
[2021-03-31 11:30] LABS: Anion Gap 7 (5-15); BUN 10 mg/dL (7-18); BUN/Creat Ratio 14.7 RATIO (10-20); Calcium,Total 9.4 mg/dL (8.5-10.1); Chloride 106 mmol/L (98-107); Creatinine, Serum 0.68 mg/dL (0.70-1.30); EST Glomerular Filtration Rate 123 mL/min (>60); Est Glom Filt Rate - Afr Amer 149 mL/min (>60); Estimated Creatinine Clearance 60.38 ml/min; Glucose 90 mg/dL (74-106); Potassium 3.9 mmol/L (3.5-5.1); Sodium Level 139 mmol/L (136-145); Troponin-I HS 14 pg/mL (3.0-78.0)
[2021-03-31 11:51] VITALS: BP 104/63
[2021-03-31 11:56] LABS: Bedside Glucose 78 mg/dL (70-110)
[2021-03-31 12:00] VITALS: BP 107/82; PULSE 70; RESP 18; O2SAT 95
--- NOTE | 2021-03-31 12:21 | MRI_ITS ---
STUDY: MRI BRAIN WITH AND WITHOUT CONTRAST REASON FOR EXAM: Male, 70 years old. brain mass TECHNIQUE: Standardized multiplanar fat and water weighted pulse sequences were obtained. 13CC IV DOTAREM was administered for the contrast portion of the examination. COMPARISON: 06/30/2021 FINDINGS: Normal size of the ventricles and extra-axial spaces for the patient''s age. Mild periventricular white matter ischemic changes.. There is a large mass in the right parietal lobe demonstrating heterogeneous signal intensity with low signal nidus demonstrating homogeneous enhancement and measuring approximately 6 x 4.5 x 6 cm. There is a thin-walled and multiseptations demonstrating enhancement following contrast administration in association with edematous changes effacing the cortical sulci in the right parietal and occipital lobes. There is also mass effect upon the occipital horn of the right lateral ventricle which is displaced anteriorly and inferiorly. There is also mild mass effect upon the dorsal mesencephalon on the right. Due to the thin walled enhancement this could represent an abscess however due to involvement of the splenium of the corpus callosum glioblastoma cannot be excluded. There is a very small focus of subacute hemorrhage within the lesion. High signal changes within the kg and midbrain bilaterally possibly ischemic changes. Normal bilateral basal ganglia. Normal thalami. There is no extra-axial fluid accumulation. Normal flow voids within the major intracranial circulation suggesting patency by spin echo criteria. Normal venous enhancement. There is no enhancing intra-axial or extra-axial abnormality. Normal sella turcica, pituitary gland, infundibular stalk, optic chiasm and hypothalamus. Normal tectal plate and pineal gland. Normal midbrain, and medulla. Tiny focus of chronic ischemia within the left cerebellar hemisphere. Normal basal cisterns. Normal bilateral temporal bones. Normal bilateral internal auditory canals. No demonstrated orbital abnormality, within the constraints of a routine brain study. Small polyp or mucous retention cyst in the sphenoid sinus. Normal calvarium and skull base. Normal visualized soft tissue structures. Normal visualized upper cervical spine. MRI/Brain W/WO Contrast IMPRESSION: Large mass in the right parietal-occipital region of indeterminate etiology. . Possibility of large abscess may be considered however there is apparent involvement of the corpus callosum which raises question of glioblastoma. Clinical correlation recommended Electronically Signed: Wil Saucedo MD at 16:33 EDT , Service support ,
[2021-03-31] MEDS: fentaNYL 100 MCG/2 ML Ampul 25 MCG IV ×2 (12:39→18:47)
[2021-03-31] MEDS: dexAMETHasone 10 MG/ML Vial IV (12:39)
--- NOTE | 2021-03-31 17:16 | NURSING ---
CALLED [facility], NO BED
--- NOTE | 2021-03-31 17:16 | NURSING ---
CALLED [facility], DR CUEVAS TALKED TO CLIMATOLOGY TEACHER SHOULD HAVE A BED SOON
--- NOTE | 2021-03-31 18:06 | NURSING ---
[facility] [address] 362 NURSE TO NURSE [phone] DEANDRA TOSCANO
[2021-03-31 18:39] VITALS: BP 147/100; PULSE 74; RESP 17; TEMP 36.6; O2SAT 95
[2021-03-31 20:04] LABS: Bacteria 0 SEEN /hpf (None Seen); Mucous, Urine 0 SEEN /hpf (<or=2+); Squamous Epithelial Cells - UA 0 SEEN /hpf (0-5); White Blood Cells 0 SEEN /hpf (0-5)
[2021-03-31 20:06] LABS: Color, Urine Yellow (Yellow); Glucose, Dipstick Normal (Normal); Ketone-Dipstick Negative (Negative); Leukocyte Esterase-Dipstick Negative /ul (Negative); Nitrite-Dipstick Negative (Negative); Occult Blood-Urine Negative /ul (Negative); Protein-Dipstick 15 mg/dl (Negative); Specific Gravity, Urine 1.015 (1.002-1.030); Urine Bilirubin Dipstick Negative (Negative); Urine Clarity Clear (Clear); Urine Urobilinogen Normal (Normal)
[2021-03-31 20:18] LABS: Red Blood Cells-Urine 0-5 SEEN /hpf (0-5)
[2021-03-31 20:33] VITALS: BP 120/84; PULSE 80; RESP 18; O2SAT 94
[2021-03-31] MEDS: oxyCODONE 5 MG Tablet PO (20:58)
== END 2021-03-31 21:05 | disposition other institution (70) ==
PROVIDERS: Emergency Provider Emergency Medicine; PCP Family Medicine
DX: C15.9 Malignant neoplasm of esophagus, unspecified (principal); G93.9 Disorder of brain, unspecified; R27.0 Ataxia, unspecified; I48.0 Paroxysmal atrial fibrillation; Z95.1 Presence of aortocoronary bypass graft; Z92.21 Personal history of antineoplastic chemotherapy; Z87.891 Personal history of nicotine dependence; Z79.899 Other long term (current) drug therapy; Z79.51 Long term (current) use of inhaled steroids; Z79.02 Long term (current) use of antithrombotics/antiplatelets; Z79.01 Long term (current) use of anticoagulants
CPT/HCPCS: 36591; 70450; 70553; 71045; 80048; 81001; 82962; 84484; 85025; 85610; 85730; 87426; 93005; 96374; 96375; 96376; 99285; A9575; A4216